=== PATIENT | male | born 2000 | race African-American/Black ===

== ENCOUNTER 2024-12-16 20:44 | Emergency (ER) | payer MEDICAID, SELFPAY ==
--- NOTE | 2024-12-16 20:00 | ECG_ITS ---
The 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
[2024-12-16 20:48] VITALS: BP 121/101; PULSE 102; TEMP 37.5; O2SAT 96; BMI 26.4
--- NOTE | 2024-12-16 21:01 | XR_ITS ---
The [address] [address] Patient Name: TANI CLINE MRN: [id number] date: 2000 Sex: M Assigned Patient Location: ER Current Patient Location: ED.MAIN Accession/Order Number: [id number] Exam Date: 12/16/2024 21:15 Report Date: 12/16/2024 21:41 At the request of: CARMEN GOMEZ Procedure: XR chest 2V EXAM: XR chest 2V HISTORY: SOB COMPARISON: 03/15/2015 TECHNIQUE: Upright PA and lateral chest x-ray FINDINGS: The heart is not enlarged and the vasculature is not distended. No acute infiltrate, effusion or pneumothorax is identified. The osseous structures are grossly intact. XR/XR chest 2V IMPRESSION: No acute infiltrate or evidence of cardiac decompensation. Except for expected maturation changes, the overall appearance of the chest is essentially unchanged. Electronically authenticated by: KALI BOWDEN Date: 12/16/2024 21:41
--- NOTE | 2024-12-16 21:03 | ED.SOB1 ---
HPI - SOB/Dyspnea General Chief Complaint: Shortness of Breath/Dyspnea Stated Complaint: SOB Time Seen by Provider: 12/16/24 20:48 Source: patient and family (mother) Mode of arrival: walk-in Limitations: no limitations History of Present Illness HPI Narrative: The patient is a 24-year-old male with a history of asthma who presents to the emergency department with shortness of breath. The patient stated that shortness of breath has occurred over the last several days and seems to be getting worse. This patient has a known past medical history asthma. He has never been intubated or in the ICU. However, as a child he was hospitalized several times. As an adult, the patient does have a nebulizer as well as a metered-dose inhaler which she has with him at all times. Currently, the patient is out of all of his asthma medications. His chest feels tight and he feels like he cannot get a satisfying breath. The patient states that he does smoke about 5 times a week and he also smokes marijuana. The patient indicates that he has been cutting down since he has been getting older because he does not want to cause more problems with his asthma. The patient indicates that he has had some subjective fevers and has been sweaty. He denies any sick contacts or recent travel. His symptoms are moderate in severity. Unknown what makes them worse. Nothing makes them better. Positioning does not seem to affect him. Exertion does seem to make it worse. Patient's denying any significant pain at this time. Related Data Previous Rx's ?Medication ?Instructions ?Recorded albuterol sulfate 2.5 mg/3 mL 2.5 mg (3 mL) inhalation Q6H PRN 12/16/24 (0.083 %) solution for nebulization shortness of breath or wheezing #75 mL albuterol sulfate 90 mcg/actuation 1 inh inhalation Q6H PRN shortness 12/16/24 aerosol inhaler of breath or wheezing #8.5 grams mometasone-formoterol HFA 200 2 inh inhalation Q12H #13 grams 12/16/24 mcg-5 mcg/actuation aerosol inhaler (Dulera) prednisone 20 mg tablet 40 mg (2 x 20 mg) PO DAILY 5 days 12/16/24 #10 tabs Allergies Allergy/AdvReac Type Severity Reaction Status Date / Time peanut Allergy Severe Anaphylaxis Verified 12/16/24 20:54 fish derived AdvReac Severe Anaphylaxis Verified 12/16/24 20:54 Review of Systems ROS Narrative 10 Systems were reviewed, and unless noted in the HPI, all other systems are reviewed, unremarkable, or noncontributory. PFSH [facility] Social History Little interest or pleasure in doing things: not at all Feeling down, depressed, or hopeless: not at all Exam Narrative Exam Narrative: Prior to examining the patient, I have washed with hospital approved and provided Antiseptic Hand [employer] and have also applied gloves.? Prior to touching the patient, I asked for consent to examine the patient.? General: Alert and oriented, well nourished, mild distress. Eye: PERRL, EOMI, normal conjunctiva. HENT: Normocephalic, normal hearing, moist oral mucosa, no scleral icterus, no sinus tenderness. Neck: Supple, non-tender, no carotid bruits, no JVD, no lymphadenopathy. Lungs: Clear to auscultation and percussion, non-labored respiration. The patient does not have any rhonchi, rales, wheezing despite his symptoms. Heart: Normal rate, regular rhythm, no murmur, gallop or edema. Abdomen: Soft, non-tender, non-distended, normal bowel sounds, no masses. Musculoskeletal: Normal range of motion and strength, no tenderness or swelling. Skin: Skin is warm, dry and pink, no rashes or lesions. Neurologic: Awake, alert, and oriented X3, CN II-XII intact. Psychiatric: Cooperative, appropriate mood and affect.? Following the conclusion of the examination, I have washed my hands thoroughly after removing examination gloves. Constitutional Vital Signs, click to edit/add: Last Vital Signs Temp 99.5 F 12/16/24 20:48 Pulse 86 12/16/24 23:34 Resp 18 12/16/24 23:34 BP 128/69 12/16/24 23:34 Pulse Ox 98 12/16/24 23:34 O2 Del Method Room Air 12/16/24 23:34 Course Course Hospital Course: Upon my initial assessment of the patient I have told the patient that we are going to be giving him a dose of steroids, nebulized breathing treatment, COVID and influenza swabs as well as a chest x-ray. Because the patient does not have his prescriptions filled, I will be refilling those so that he has access to his maintenance medications. Reevaluation(s) Reevaluation #1: Complained that DuoNeb ineffective. Will write for Albuterol Neb. Time: 21:41 Reevaluation #2: Patient later received an albuterol treatment. And when the patient felt that that was also ineffective and that he needed to be admitted I had them do an ABG. The patient at no time looked an extremis and had stable vital signs the entire time. Vital Signs Vital signs: Vital Signs Temperature 99.5 F 12/16/24 20:48 Pulse Rate 102 H 12/16/24 20:48 Respiratory Rate 22 H 12/16/24 20:48 Blood Pressure 121/101 H 12/16/24 20:48 Pulse Oximetry 96 12/16/24 20:48 Oxygen Delivery Method Room Air 12/16/24 20:48 Temperature 99.5 F 12/16/24 20:48 Pulse Rate 86 12/16/24 23:34 Respiratory Rate 18 12/16/24 23:34 Blood Pressure 128/69 12/16/24 23:34 Pulse Oximetry 98 12/16/24 23:34 Oxygen Delivery Method Room Air 12/16/24 23:34 MDM - SOB/Dyspnea MDM Narrative Medical decision making narrative: The patient is a 24-year-old asthmatic is presenting to the emergency department with chest tightness and shortness of breath. The patient had an unremarkable chest x-ray. The patient's viral swabs were negative. The patient is not wheezing and does not appear toxic or in distress but the patient is extremely adamant that he is having an asthma attack and appears very anxious. He does have a history of bipolar. He does have his bipolar medications and has been apparently taking them. But he has been out of his asthma medications. He estimates he has been out 3 to 4 days. Therefore, we will going to reinstitute the patient's medications. At this time he appears nontoxic and in no distress and I feel safe sending him home. He lives with his mom. Differential Diagnosis Differential diagnosis: Likely acute exacerbation of chronic obstructive airways disease, community acquired pneumonia and asthma with exacerbation Medical Records Attestation: I reviewed the patient's medical records. Lab Data Attestation: I reviewed the patient's lab results. Lab results narrative: I reviewed this gentlemen's lab results. He has no evidence of COVID or influenza. The patient had an ABG ordered however he effectively had a VBG. The pH, pO2, pCO2, and HCO3 were all within normal ranges for venous blood gas. Therefore at this time I am not concerned that the patient is having any acute crisis from asthma. I believe that we could put him on daily steroid therapy and put him back on his normal inhalers to continue therapy. Labs: Lab Results 12/16/24 12/16/24 Range/Units 21:21 22:29 Puncture Site R radial ABG pH 7.297 L* (7.350-7.450) ABG pCO2 48.4 H (35.0-45.0) mmHg ABG pO2 <30.1 L* (80.0-100.0) mmHg ABG HCO3 23.6 (22.0-26.0) mmol/L ABG O2 Saturation 32.2 % ABG Base Excess -2.9 L (-2.0-2.0) mmol/L Remi Test Positive (POSITIVE) Influenza Type A Ag Negative Influenza Type B Ag Negative SARS-CoV-2 Ag (CV2AG) Negative (NEGATIVE) ABG Data Attestation: I personally reviewed and interpreted this ABG as follows: Interpretation: An ABG was ordered but we acquired a VBG. And I was able to easily interpret that revealing no evidence of any hypoxia. His VBG levels were within normal range. Imaging Data Chest x-ray: Radiologist's impression: ITS Impressions Chest X-Ray 12/16/24 21:01 IMPRESSION: No acute infiltrate or evidence of cardiac decompensation. Except for expected maturation changes, the overall appearance of the chest is essentially unchanged. Electronically authenticated by: KALI BOWDEN Date: 12/16/2024 21:41 Smoking Cessation Patient Acknowledges Need for Cessation: Yes (Patient indicates he is already trying to cut down himself.) Discharge Plan Discharge Chief Complaint: Shortness of Breath/Dyspnea Clinical Impression: Asthma with acute exacerbation, Medication refill Patient Disposition: Home, Self-Care Time of Disposition Decision: 23:21 Condition: Good Mode of Transportation: Private Vehicle Prescriptions / Home Meds: New albuterol sulfate 90 mcg/actuation HFA aerosol inhaler 1 inh inhalation Q6H PRN (Reason: shortness of breath or wheezing) Qty: 8.5 0RF albuterol sulfate 2.5 mg /3 mL (0.083 %) solution for nebulization 2.5 mg inhalation Q6H PRN (Reason: shortness of breath or wheezing) Qty: 75 0RF Dulera 200-5 mcg/actuation HFA aerosol inhaler 2 inh inhalation Q12H Qty: 13 0RF prednisone 20 mg tablet 40 mg PO DAILY 5 Days Qty: 10 0RF Print Language: Belarusian Instructions: Asthma (ED), Medicine Refill (ED) Additional Instructions: Thank you for trusting me with your care today. Please try to minimize your smoking to try to help the integrity of your lungs. Referrals: MAIKEL GAYLE [Primary Care Provider] - 1 week Discharge Date/Time: 12/16/24 23:36
[2024-12-16] MEDS: PREDNISONE 20 MG TABLET 40 MG PO (21:19)
[2024-12-16 21:20] VITALS: PULSE 116; O2SAT 93
[2024-12-16] MEDS: IPRATROPIUM/ALBUTEROL SULFATE 3 ML AMPUL.NEB IH (21:23)
[2024-12-16 21:39] LABS: Influenza Virus A Antigen Negative; Influenza Virus B Antigen Negative; Internal Control Within Normal Limits; SARS-CoV-2 Ag NEGATIVE (NEGATIVE)
[2024-12-16] MEDS: ALBUTEROL SULFATE 2.5 MG/3 ML VIAL NEB IH (21:58)
[2024-12-16 22:41] LABS: ABG PCO2 48.4 mmHg (35.0-45.0); Base Excess ABG -2.9 mmol/L (-2.0-2.0); HCO3 ABG 23.6 mmol/L (22.0-26.0); Oxygen Saturation ABG 32.2 %
[2024-12-16 22:42] LABS: Allen Test POSITIVE (POSITIVE); O2 Mode ROOM AIR
[2024-12-16 22:43] LABS: PO2 ABG <30.1 mmHg (80.0-100.0); Puncture Site R RADIAL; pH ABG 7.297 (7.350-7.450)
[2024-12-16 23:00] VITALS: PULSE 92; O2SAT 97
[2024-12-16 23:34] VITALS: BP 128/69; PULSE 86; O2SAT 98
== END 2024-12-16 23:36 | disposition home or self-care (01) ==
PROVIDERS: Emergency Provider Emergency Medicine; PCP Internal Medicine
DX: J45.901 Unspecified asthma with (acute) exacerbation (principal); Z76.0 Encounter for issue of repeat prescription; F31.9 Bipolar disorder, unspecified; F17.200 Nicotine dependence, unspecified, uncomplicated
CPT/HCPCS: 36600; 71046; 82805; 87804; 87811; 93005; 94640; 99285; J7512